=== PATIENT | female | born 1990 | race Hispanic/Latino ===

== ENCOUNTER 2020-02-27 05:40 | Outpatient (CLI) | payer OTHER, SELFPAY ==
[2020-02-27 18:35] LABS: SARS-CoV-2 RNA PCR Negative
== END 2020-02-27 05:41 | disposition home or self-care (01) ==
LOC: ANHCOVIDDT 05:42
PROVIDERS: PCP Emergency Medicine; Visit Provider Obstetrics & Gynecology
DX: Z01.818 Encounter for other preprocedural examination (principal); Z11.59 Encounter for screening for other viral diseases
CPT/HCPCS: 87635; C9803; U0003

== ENCOUNTER 2020-02-28 16:28 | Outpatient (CLI) | payer OTHER, SELFPAY ==
[2020-02-28 17:24] LABS: Hematocrit 38.7 % (37.0-47.0); Hemoglobin 12.2 g/dL (12.0-15.0)
== END 2020-02-28 16:29 | disposition home or self-care (01) ==
PROVIDERS: Anesthesiology; Visit Provider Obstetrics & Gynecology
DX: Z01.812 Encounter for preprocedural laboratory examination (principal); R10.2 Pelvic and perineal pain; D64.9 Anemia, unspecified
CPT/HCPCS: 36415; 85014; 85018; 86850; 86900; 86901

== ENCOUNTER 2020-03-01 01:05 | Day surgery (SDC) | payer OTHER, SELFPAY ==
[2020-02-27 12:56] VITALS: BMI 20.4
--- NOTE | 2020-02-28 07:10 | P.HP_ITS ---
H&P: HPI History of Present Illness Chief complaint: Pelvic Pain/ Irregular Bleeding Narrative: Angela Lopez is a 29 year old female 6 para 0 1 is admitted for laparoscopy hysteroscopy dilatation and curettage. She has had chronic pelvic pain and dyspareunia. She notes bleeding with her intercourse. Periods last about 5-6 days and have been extremely heavy. She underwent ultrasound which showed the uterus to be retroverted and rotated endometrial canal was hyperechoic and prominent at the fundus. The ovaries otherwise appeared relatively within normal limits and no free fluid seen. In light of her history of poor obstetric outcomes / her Tien stent dyspareunia, and her excessive bleeding. She is admitted for laparoscopy/hysteroscopy / dilatation curettage. Risks and benefits reviewed including but not exclusive of , aspiration pneumonia, bleeding, transfusion, perforation injury to bowel, bladder, ureters, and other internal organs with need for open laparotomy. She received the [employer] handout entitled laparoscopy, hysteroscopy, dilatation and curettage respectively. She had all questions answered. She asked to proceed Review of Systems Review of Systems: All systems reviewed & are unremarkable except as noted in HPI and below Meds Home Medications and Allergies Home Medications Medication Instructions Recorded Confirmed Type albuterol sulfate 2 puff INHALATION QID PRN 02/27/20 02/27/20 History Allergies Allergy/AdvReac Type Severity Reaction Status Date / Time Bumble Bee Allergy Mild Swelling Uncoded 02/27/20 12:58 HORNETS Allergy Unknown Swelling Uncoded 02/27/20 12:58 Wasp Allergy Unknown Swelling Uncoded 02/27/20 12:58 Exam Const: General: no acute distress Eyes: General: appearance normal, both eyes and all related structures Neck: Neck: supple and no JVD Thyroid: thyroid normal Resp: Effort & Inspection: normal respiratory effort Auscultation: clear to auscultation bilaterally Cardio: Rate: regular rate Rhythm: regular rhythm GI: Inspection: non-distended GI Palp: Yes Soft to palpation, No Tenderness to palpation present (GI) and No Guarding due to palpation present (GI) Ausc ultation: normal bowel sounds : General: Yes bladder normal to inspection External Female Exam: normal external appearance Speculum Exam - Vagina: normal appearance of the vagina Speculum Exam - Cervix: normal appearance of the cervix Bimanual exam- vagina & uterus: Cervical tenderness present, cervical motion tenderness and fixed Bimanual Exam- Adnexa, other: tender Skin: General skin exam: no rashes or lesions noted Extrem: General: normal to inspection and no edema Psych: Mental Status: mental status grossly normal Affect: normal affect Assessment and Plan Additional Plan impression: Pelvic pain / dyspareunia / irregular excessive bleeding Plan: Laparoscopy, hysteroscopy, dilatation and curettage
--- NOTE | 2020-03-01 06:48 | WPDHPUPDATE1 ---
History and Physical Update Update Date/Time: 03/01/20 06:48 History and Physical has been reviewed, including an updated exam of the patient. There are NO changes in the patient's condition. Risks, benefits, and alternatives have been discussed and questions answered. Patient agrees to proceed with procedure.
[2020-03-01 07:25] VITALS: BP 119/52; PULSE 72; RESP 20; TEMP 36.9; O2SAT 100
[2020-03-01] MEDS: LACTATED RINGERS 1,000 ML 30 ML IV CONT ×2 (07:50→10:11)
--- NOTE | 2020-03-01 08:07 | WPDANESEPPF ---
Anes - Initial Pre Proc Eval Procedure: Operation Date: 03/01/20 09:30 Proposed Procedures p Diagnostic Laparoscopy, Hysteroscopy, Dilation And Curettage - Deven Cartwright MD Date/Time: 03/01/20 08:07 Surgeon: Deven Cartwright MD Pre Op Diagnosis: Pelvic Pain/ Irregular Bleeding Patient Data Age: 29 Gender: F Height: 5 ft 4 in Weight: 54 kg Last Vital Signs Temp 36.9 C 03/01/20 07:25 Pulse 72 03/01/20 07:25 Resp 20 03/01/20 07:25 BP 119/52 L 03/01/20 07:25 Pulse Ox 100 03/01/20 07:25 Allergies Allergy/AdvReac Type Severity Reaction Status Date / Time Bumble Bee Allergy Mild Swelling Uncoded 02/27/20 12:58 HORNETS Allergy Unknown Swelling Uncoded 02/27/20 12:58 Wasp Allergy Unknown Swelling Uncoded 02/27/20 12:58 Home Medications Medication Instructions Recorded Confirmed Type albuterol sulfate 2 puff INHALATION QID PRN 02/27/20 02/27/20 History hydrocodone-acetaminophen [[place]] 1 tablet PO Q4H PRN #30 tablet 03/01/20 Rx Patient hx anesthesia problems: none Family hx anesthesia problems: none PMFSH Past Medical History Medical History (Updated 03/01/20 @ 08:08 by Deven Cornejo MD) Abnormal uterine bleeding (AUB) Dyspareunia Anes - Eval Final PreProcedure Day of Procedure 03/01/20 08:07 Patient weight: normal Heart: regular rate and rhythm Lungs: clear to auscultation Airway: Mallampati scale class II Neurological: alert and oriented Last oral intake: >/= 8 hours ASA classification: II Anesthesia type and monitoring: general ETT and standard monitoring Informed Consent: The patient's anesthetic plan and its attendant risks and benefits were discussed with the patient/family/POA. Questions were solicited and answers provided to the satisfaction of the patient/family/POA.
[2020-03-01] MEDS: KETOROLAC 30 MG/ML VIAL (*BKC) IV PUSH (09:56)
--- NOTE | 2020-03-01 10:00 | P.OP_ITS ---
Procedure Note - Detailed Date of procedure: 03/01/20 Pre-op diagnosis: Pelvic Pain/ Irregular Bleeding Surgeon: Deven Cartwright MD Postop diagnosis: Pelvic pain/irregular bleeding/endometriosis/right ovarian cyst/pelvic adhesions Procedure: Laparoscopic destruction of endometriosis/destruction of right ovar alejandra cyst/lysis of adhesions/hysteroscopy/dilatation curettage Anesthesia: General endotracheal EBL: 5cc Findings: A adhesions from the omentum to the anterior abdominal. Large simple appearing right ovarian cyst. Multiple areas of powder burn endometriosis along the right left uterus sacral ligatament. Left ovary and uterus normal-appearing appendix. Normal-appearing gallbladder and liver edge Complications: None Description of procedure: The patient was prepped and draped in the normal sterile fashion and placed in the dorsal lithotomy position. Under excellent general endotracheal anesthesia weighted speculum placed in posterior fornix of vagina. Anterior lip of the cervix grasped with single-tooth tenaculum. The Caro's cannula was inserted the cervix and attached to the single-toothed. This was to be used later for uterine manipulation. After emptied the bladder of clear urine, the weighted speculum was removed. Gloves were changed An infra umbilical incision made. The Veress needle was passed in the abdomen. The abdomen was filled with CO2 gas [id number]. The 5mm trocar was advanced in the abdomen under direct visualization assuring no injury. The patient was placed in Trendelenburg. A suprapubic incision made in the 5mm trocar advanced under direct visualization. Multiple adhesions were seen from the omentum to the anterior abdominal. This did not involve colon small bowel and was sharply dissected without difficulty. This helped visualization. The uterus appeared within normal limits as did the left ovary tube. A large right simple ovarian cyst was seen and this was drained of clear fluid. Normal-appearing appendix and gallbladder seen. The areas of endometriosis as noted above along the right and left uterus sacral ligament and paraovarian fossa is for cauterized at 35 w per 2nd with monopolar cautery. Irrigation was undertaken until clear. No other abnormalities were seen. The trocars were removed after gas removed from the abdomen. And the incisions were then closed with 4 O Monocryl glue. Attention was turned to the hysteroscopy. The uterus sounded to 8cm. Serial dilatation with fragmented dilators performed followed by passage of the 5mm visualizing hysteroscope. Normal saline was used as visualizing medium. Normal-appearing tubal ostia were seen as well as the uterine cavity. The uterus was scraped over the entire 360? until a good grating sound was heard. When no further tissue could be remove the instruments removed. The patient was awakened. All sponge, needle, instrument counts were correct. There were no immediate complications
[2020-03-01 10:11] VITALS: BP 132/89; PULSE 82; RESP 14; TEMP 36.3; O2SAT 100
[2020-03-01 10:28] VITALS: BP 154/70; PULSE 60; RESP 12; O2SAT 100
[2020-03-01 10:40] VITALS: PULSE 66; RESP 16; TEMP 36.6; O2SAT 100
--- NOTE | 2020-03-01 10:48 | SUR.PHASEI ---
1045; PT AWAKE AND ALERT. CALM. TALKATIVE. STATES PAIN MUCH BETTER NOW AND TOLERABLE
[2020-03-01 11:00] VITALS: BP 143/55; PULSE 66
[2020-03-01 11:30] VITALS: BP 128/69; PULSE 56
== END 2020-03-01 12:02 | disposition home or self-care (01) ==
PROVIDERS: Visit Provider Obstetrics & Gynecology
PROC: 0UDB8ZZ Extraction of Endometrium, Via Natural or Artificial Opening Endoscopic (ICD-10-PCS; CPT 58558; principal; 2020-03-01 09:30)
DX: N80.3 Endometriosis of pelvic peritoneum (principal); R10.2 Pelvic and perineal pain; N92.6 Irregular menstruation, unspecified; N83.291 Other ovarian cyst, right side; N73.6 Female pelvic peritoneal adhesions (postinfective)
CPT/HCPCS: 58662; 58558; 88305; A9270; J1100; J1885; J2250; J2405; J2704; J2710; J3010; J7030; J7120

== ENCOUNTER 2020-04-30 17:33 | Outpatient (CLI) | payer OTHER, SELFPAY ==
[2020-04-30 18:04] LABS: Hematocrit 35.2 % (37.0-47.0); Hemoglobin 11.5 g/dL (12.0-15.0)
== END 2020-04-30 17:34 | disposition home or self-care (01) ==
PROVIDERS: Visit Provider Obstetrics & Gynecology
DX: N93.9 Abnormal uterine and vaginal bleeding, unspecified (principal)
CPT/HCPCS: 36415; 85014; 85018

== ENCOUNTER 2020-05-01 00:50 | Outpatient (CLI) | payer OTHER, SELFPAY ==
[2020-05-02 13:59] LABS: SARS-CoV-2 RNA PCR Negative
== END 2020-05-01 00:51 | disposition home or self-care (01) ==
LOC: ANHCOVIDDT 00:50
PROVIDERS: Visit Provider Obstetrics & Gynecology
DX: Z01.812 Encounter for preprocedural laboratory examination (principal); Z11.59 Encounter for screening for other viral diseases
CPT/HCPCS: 87635; C9803; U0003

== ENCOUNTER 2020-05-03 05:33 | Day surgery (SDC) | payer OTHER, SELFPAY ==
[2020-04-29 12:52] VITALS: BMI 21.4
--- NOTE | 2020-05-01 07:35 | PM.IMHP ---
H&P: HPI History of Present Illness Chief complaint: desires sterilization Narrative: Angela Lopez is a 29 year old female who is admitted for laparoscopic bilateral tubal ligation hysteroscopy dilatation curettage and the nerve ablation. She has a history of poor outcome obstetric Lee. She bleeds heavily and has had a very difficult time with her bleeding and pain. She desires permanent and irreversible sterilization. Alternatives reviewed in great detail. She was treated for a recent chlamydia infection . Risks and benefits were reviewed in full. She had all questions answered and asked to proceed Review of Systems Review of Systems: All systems reviewed & are unremarkable except as noted in HPI and below PMFSH Past Medical History Medical History Abnormal uterine bleeding (AUB) Dyspareunia Social History Social History Years smoked: 20 Smoking status: Current some day smoker Tobacco type: cigarettes Alcohol intake: current Drinks per week: 3 Substance use: current Substance use type: marijuana Last use: 04/29/20 Spiritual care concerns: No Meds Home Medications and Allergies Home Medications Medication Instructions Recorded Confirmed Type albuterol sulfate 2 puff INHALATION QID PRN 02/27/20 04/29/20 History Allergies Allergy/AdvReac Type Severity Reaction Status Date / Time Bumble Bee Allergy Mild Swelling Uncoded 04/29/20 12:53 HORNETS Allergy Unknown Swelling Uncoded 04/29/20 12:53 Wasp Allergy Unknown Swelling Uncoded 04/29/20 12:53 Exam Const: General: no acute distress Eyes: General: appearance normal, both eyes and all related structures Neck: Neck: supple and no JVD Thyroid: thyroid normal Resp: Effort & Inspection: normal respiratory effort Auscultation: clear to auscultation bilaterally Cardio: Rate: regular rate Rhythm: regular rhythm GI: Inspection: non-distended GI Palp: Yes Soft to palpation, No Tenderness to palpation present (GI) and No Guarding due to palpation present (GI) Auscultation: normal bowel sounds : General: Yes bladder normal to palpation External Female Exam: normal external appearance Speculum Exam - Vagina: normal vaginal discharge and No vaginal bleeding Speculum Exam - Cervix: nontender Bimanual exam- vagina & uterus: bladder normal to palpation and No Cervical tenderness present OB/external & speculum: No vaginal bleeding Skin: General skin exam: no rashes or lesions noted Extrem: General: normal to inspection and no edema Psych: Mental Status: mental status grossly normal Affect: normal affect Assessment and Plan Additional Plan impression: Desires permanent sterilization with excessive heavy bleeding Plan: Laparoscopic bilateral tubal ligation / hysteroscopy dilatation and curettage/ endometrial ablation
[2020-05-03] VITALS (11 sets, daily range): BP systolic 120–166; BP diastolic 49–100; PULSE 60–105; RESP 16–24; TEMP 36.6–37.3; O2SAT 94–100
--- NOTE | 2020-05-03 06:14 | WPDHPUPDATE1 ---
History and Physical Update Update Date/Time: 05/03/20 06:14 History and Physical has been reviewed, including an updated exam of the patient. There are NO changes in the patient's condition. Risks, benefits, and alternatives have been discussed and questions answered. Patient agrees to proceed with procedure.
--- NOTE | 2020-05-03 11:27 | WPDANESEPPF ---
Anes - Initial Pre Proc Eval Procedure: Operation Date: 05/03/20 12:30 Proposed Procedures p Laparoscopic Bilateral Tubal Sterilization with Fallopian Rings - Deven Cartwright MD s Hysteroscopy, Dilation And Curettage, [place] Endometrial Ablation - Deven Cartwright MD Date/Time: 05/03/20 11:27 Surgeon: Deven Cartwright MD Pre Op Diagnosis: desires sterilization Patient Data Age: 29 Gender: F Height: 5 ft 4 in Weight: 56.7 kg Allergies Allergy/AdvReac Type Severity Reaction Status Date / Time Bumble Bee Allergy Mild Swelling Uncoded 05/03/20 11:25 HORNETS Allergy Unknown Swelling Uncoded 05/03/20 11:25 Wasp Allergy Unknown Swelling Uncoded 05/03/20 11:25 Home Medications Medication Instructions Recorded Confirmed Type albuterol sulfate 2 puff INHALATION QID PRN 02/27/20 05/03/20 History hydrocodone-acetaminophen [[place]] 1 tablet PO Q4H PRN #30 tablet 05/03/20 Rx Patient hx anesthesia problems: none Family hx anesthesia problems: none PMFSH Past Medical History Medical History (Updated 05/03/20 @ 11:27 by Emile Beth MD) Abnormal uterine bleeding (AUB) Asthma Dyspareunia Social History Social History Years smoked: 20 Smoking status: Current some day smoker Tobacco type: cigarettes Alcohol intake: current Drinks per week: 3 Substance use: current Substance use type: marijuana Last use: 04/29/20 Spiritual care concerns: No Anes - Eval Final PreProcedure Day of Procedure 05/03/20 11:27 Patient weight: normal Heart: regular rate and rhythm Lungs: clear to auscultation Airway: Mallampati scale class II Neurological: alert and oriented Last oral intake: >/= 8 hours ASA classification: III Emergent: no Anesthetic plan: proceed Anesthesia type and monitoring: general ETT and standard monitoring Informed Consent: The patient's anesthetic plan and its attendant risks and benefits were discussed with the patient/family/POA. Questions were solicited and answers provided to the satisfaction of the patient/family/POA.
[2020-05-03] MEDS: LACTATED RINGERS 1,000 ML 30 ML IV CONT ×2 (11:45→12:40)
[2020-05-03] MEDS: KETOROLAC 15 MG/ML VIAL (*BKC) IV PUSH (11:58)
[2020-05-03] MEDS: ACETAMINOPHEN 500 MG TABLET 1000 MG PO (11:59)
--- NOTE | 2020-05-03 12:38 | PM.PROC ---
Procedure Note - Detailed Date of procedure: 05/03/20 Pre-op diagnosis: desires sterilization Surgeon: Deven Cartwright MD postop diagnosis: Desires sterilization and excessive heavy bleeding refractory to medical therapy Procedure: Laparoscopic tubal ligation with rings /hysteroscopy / dilatation curettage / the nerve ablation Anesthesia: General endotracheal Complications: None EBL: 5Cc Findings: Normal-appearing uterus ovaries and tubes. Normal-appearing appendix. On hysteroscopy the uterus sounded to 7cm. Irregular endometrial tissue was seen. Normal-appearing tubal ostia bilaterally Description of procedure. : Patient was prepped draped in the normal sterile fashion placed in the dorsal lithotomy position. Under excellent general trach anesthesia weighted speculum placed in posterior fornix of vagina. Anterior lip of the cervix grasped with single-tooth tenaculum and a Caro's cannula inserted the cervix. This was attached to the single-tooth to be used later for uterine manipulation. After emptying the bladder of clear urine weighted speculum was removed. Gloves were changed. An infraumbilical incision made the Veress needle passed in the abdomen. Abdomen was filled with CO2 gas [id number]. The 5mm trocar was advanced in the abdomen downside visualized. No injury seen patient placed in Trendelenburg and a suprapubic incision made. The 8mm trocar was advanced in the abdomen under direct visualization assuring no injury. The above findings were seen and photo documentation undertaken. The right fallopian tube was grasped with the tubal ring applicator and it was placed midportion with excellent blanching. This was repeated on the left side with good blanching and midportion of the left tube. Photo documentation was undertaken. No abnormalities were seen otherwise. The gas removed from the abdomen. The trocars removed from the abdomen. The incisions closed with 4 O Monocryl and glue. The hysteroscopic portion was undertaken. The uterus sounded to7.5cm. The 5mm visualizing hysteroscope was inserted and irregular endometrial tissue was seen be each fallopian tube os appeared within normal limits as well. The uterus was then scraped over the entire 360?. When a good grating sound was heard the this portion of the procedure was terminated. The Hugo nerve instrument was placed in the uterus was burned for 120seconds. This was then removed. The patient tolerated the procedure well and was awakened. All sponge, needle, instrument counts were correct. There were no immediate complications
--- NOTE | 2020-05-03 12:50 | SUR.PHASEI ---
1240; PT BROUGHT INTO PACU CRYING AND MOANING IN PAIN. PT TENSE. PT COMFORTED. ORIENTED TO PACU. FENTANYL GIVEN PRN.
--- NOTE | 2020-05-03 13:59 | SUR.PHASEI ---
PT ITCHING EYES. ENCOURAGED TO NOT RUB EYES. PT HAS EXTREMELY LONG FINGERNAILS. PT VERBALIZED UNDERSTANDING
--- NOTE | 2020-05-03 14:07 | SUR.PHASEI ---
PT AWAKE AND ALERT. TALKATIVE. STATES PAIN TOLERABLE. READY TO GO TO [facility].
[2020-05-03] MEDS: PROMETHAZINE HCL 25 MG/ML AMPUL 12.5 MG IV PUSH (14:44)
== END 2020-05-03 15:15 | disposition home or self-care (01) ==
PROVIDERS: Visit Provider Obstetrics & Gynecology
PROC: (CPT 58671; principal; 2020-05-03 12:30)
PROC: 0U5B8ZZ Destruction of Endometrium, Via Natural or Artificial Opening Endoscopic (ICD-10-PCS; CPT 58563; 2020-05-03 12:30)
DX: N93.9 Abnormal uterine and vaginal bleeding, unspecified (principal); Z30.2 Encounter for sterilization; N94.10 Unspecified dyspareunia; J45.909 Unspecified asthma, uncomplicated; F12.90 Cannabis use, unspecified, uncomplicated
CPT/HCPCS: 58671; 58563; 87635; 88305; A4264; A9270; C9803; J0330; J1100; J1170; J1885; J2250; J2405; J2550; J2704; J3010; J7030; J7120; U0003

== ENCOUNTER 2021-03-21 15:18 | Emergency (ER) | payer OTHER, SELFPAY ==
[2021-03-21] VITALS (7 sets, daily range): BP systolic 95–149; BP diastolic 65–92; PULSE 60–79; RESP 11–41; TEMP 36.7; O2SAT 94–100
--- NOTE | ~2021-03-21 | XR_ITS ---
EXAMINATION: XR chest 2V DATE: 03/21/2021 15:46 INDICATION: Palpitations. TECHNIQUE: Frontal and lateral views of the chest were obtained. COMPARISON: Chest 2 views 08/16/2012 FINDINGS: The chest demonstrates clear lungs without pneumonia, pleural effusion, or pneumothorax. Th e heart size is normal. IMPRESSION: 1. No acute cardiopulmonary disease. Reviewed, dictated and finalized at location A.
--- NOTE | 2021-03-21 15:26 | ECG_ITS ---
Measurements Intervals [place] Rate: 66 P: 50 VA: 129 QRS: 82 QRSD: 87 T: 31 QT: 387 QTc: 407 Interpretive Statements SINUS RHYTHM VENTRICULAR PREMATURE COMPLEX BORDERLINE ECG Electronically Signed On 03-25-2021 19:00:29 CDT by Varinder Mcgill D.O.
--- NOTE | 2021-03-21 15:31 | ED.ARRPALP ---
HPI - Arrhythmia/Palpitations General Chief Complaint: Arrhythmia/Palpitations Stated Complaint: Palpitations Time Seen by Provider: 03/21/21 15:20 Source: patient and RN notes reviewed Mode of arrival: ambulatory Limitations: no limitations History of Present Illness HPI narrative: This is a 30 year old female who presents for evaluation of palpitations. She states she returned from lunch with palpitations. She reports she is having irregular heart beats that are scaring her. She reports she has history of intermittent palpitations for a while but this has been occurring constantly for 1 hour. She denies associated dizziness, chest pain, sob, weakness, nausea or vomiting. She denies recent increase stress, caffeine or energy drinks. She denies previous evaluation of palpitations. Related Data Home Medications Medication Instructions Recorded Confirmed albuterol sulfate 2 puff INHALATION QID PRN 02/27/20 05/03/20 Allergies Allergy/AdvReac Type Severity Reaction Status Date / Time Bumble Bee Allergy Mild Swelling Uncoded 03/21/21 15:33 HORNETS Allergy Unknown Swelling Uncoded 03/21/21 15:33 Wasp Allergy Unknown Swelling Uncoded 03/21/21 15:33 Review of Systems Review of Systems: All systems reviewed & are unremarkable except as noted in HPI and below PMFSH Past Medical History Medical History Abnormal uterine bleeding (AUB) Asthma Dyspareunia Social History Social History Years smoked: 20 Smoking status: Current some day smoker Tobacco type: cigarettes Alcohol intake: current Drinks per week: 3 Substance use: current Substance use type: marijuana Last use: 04/29/20 Gender identity (if verbalized by the patient): Female Spiritual care concerns: No Exam Const: General: alert Orientation/consciousness: patient oriented x3 Eyes: EOM: EOMs intact bilaterally Resp: Effort & Inspection: normal respiratory effort and no retractions Auscultation: clear to auscultation bilaterally Cardio: Rate: regular rate Rhythm: regular rhythm Heart sounds: no murmurs GI: Auscultation: normal bowel sounds Skin: General skin exam: normal color Rashes: no rashes Neuro: General: patient oriented x3, moves all extremities and CN's II-XI intact bilaterally Psych: Mental Status: mental status grossly normal (patient tearful because she is scared) Course Reevaluation(s) Reevaluation #1: I discussed with patient labs are unremarkable. She is not having chest pain or shortness of breath. She is having occasional PVCS that are correlating with her symptoms. I discussed she will need to follow up with PCP for holter monitor. She will refrain from energy drinks and caffeine and stress Date: 03/21/21 Time: 17:32 Vital Signs Vital signs: Vital Signs Temperature 98.1 F 03/21/21 15:24 Pulse Rate 71 03/21/21 15:24 Respiratory Rate 18 03/21/21 15:24 Blood Pressure 149/87 H 03/21/21 15:24 Pulse Oximetry 98 03/21/21 15:24 Temperature 98.1 F 03/21/21 15:24 Pulse Rate 60 03/21/21 17:00 Respiratory Rate 19 03/21/21 17:00 Blood Pressure 114/71 03/21/21 17:00 Pulse Oximetry 100 03/21/21 16:30 MDM - Arrhythmia/Palpitations Lab Data Attestation: I reviewed the patient's lab results. Result diagrams: 03/21/21 15:35 03/21/21 15:35 Labs: Lab Results 03/21/21 03/21/21 03/21/21 Range/Units 15:35 15:35 15:35 WBC 10.7 H (4.5-10.0) K/mm3 RBC 4.54 (4.2-5.4) M/mm3 Hgb 13.5 (12.0-15.0) g/dL Hct 41.7 (37.0-47.0) % MCV 91.9 (80-100) fl MCH 29.7 (26-34) pg MCHC 32.4 (32-36) g/dl RDW 12.7 (11.5-14.5) % Plt Count 239 (150-375) k/mm3 MPV 11.2 H (7.4-10.4) fl Immature Gran % (Auto) 0.3 (0-0.5) % Neut % (Auto) 69.0 (45.5-73.1) % Lymph % (Auto) 22.9 (18.3-44.2) % [place]
[2021-03-21 15:43] LABS: Basophils Absolute Auto 0.1 K/mm3 (0.0-0.1); Basophils Percent Auto 0.5 % (0.2-1.2); Eosinophils Absolute Auto 0.1 K/mm3 (0-0.3); Eosinophils Percent Auto 1.1 % (0-4.4); Hematocrit 41.7 % (37.0-47.0); Hemoglobin 13.5 g/dL (12.0-15.0); Immature Granulocyte Absolute 0.03 K/mm3 (0.00-0.031); Immature Granulocyte Percent A 0.3 % (0-0.5); Lymphocytes Absolute Auto 2.44 K/mm3 (0.9-3.2); Lymphocytes Percent Auto 22.9 % (18.3-44.2); Mean Corpuscular HGB Conc 32.4 g/dl (32-36); Mean Corpuscular Hemoglobin 29.7 pg (26-34); Mean Corpuscular Volume 91.9 fl (80-100); Mean Platelet Volume 11.2 fl (7.4-10.4); Monocytes Absolute Auto 0.7 K/mm3 (0.1-0.6); Monocytes Percent Auto 6.2 % (2.6-8.5); Neutrophils Absolute Auto 7.4 K/mm3 (1.3-6.7); Platelet Count Result 239 k/mm3 (150-375); Red Blood Count 4.54 M/mm3 (4.2-5.4); Red Cell Distribution Width 12.7 % (11.5-14.5); White Blood Count 10.7 K/mm3 (4.5-10.0)
[2021-03-21 15:53] LABS: Alanine Aminotransferase 11 U/L (4-35); Albumin Level 4.4 g/dL (3.5-5.1); Alkaline Phosphatase 55 U/L (38-126); Anion Gap 10 mmol/L (8-16); Aspartate Amino Transferase 19 U/L (14-36); Bilirubin,Total 0.6 mg/dL (0.2-1.3); Blood Urea Nitrogen 6 mg/dL (7-17); Calcium 9.2 mg/dL (8.4-10.2); Carbon Dioxide 24 mmol/L (22-30); Chloride 105 mmol/L (98-107); Estimated Glomerular Filt Rate > 60; Glucose 95 mg/dL (65-105); Magnesium 1.7 mg/dL (1.6-2.3); Potassium 3.6 mmol/L (3.4-5.0); Sodium 139 mmol/L (137-145)
[2021-03-21 16:17] LABS: Amphetamine Screen Urine Negative (Negative); Barbiturate Screen Urine Negative (Negative); Benzodiazepines Screen Urine Negative (Negative); Cannabinoid Screen Urine Positive (Negative); Cocaine Screen Urine Negative (Negative); Methadone Screen Urine Negative (Negative); Opiate Screen Urine Negative (Negative); Phencyclidine Screen Urine Negative (Negative)
[2021-03-21 17:27] LABS: Thyroid Stimulating Hormone Reflex 0.621 uIU/mL (0.465-4.68)
== END 2021-03-21 17:46 | disposition home or self-care (01) ==
PROVIDERS: Emergency Provider General Practice
DX: R00.2 Palpitations (principal); I49.3 Ventricular premature depolarization; J45.909 Unspecified asthma, uncomplicated; F17.210 Nicotine dependence, cigarettes, uncomplicated
CPT/HCPCS: 36415; 71046; 80053; 80307; 81025; 83735; 84443; 85025; 93005; 99283